=== PATIENT | female | born 1980 | race Caucasian/White ===

== ENCOUNTER 2018-01-15 19:56 | Emergency (ER) | payer OTHER, SELFPAY ==
[2018-01-15] MEDS ORDERED: predniSONE 20 MG TAB ONE (20:26)
== END 2018-01-15 20:29 | disposition home or self-care (01) ==
LOC: MADERS 19:56
DX: J06.9 Acute upper respiratory infection, unspecified (principal)
CPT/HCPCS: 99283; J7506

== ENCOUNTER 2018-05-08 08:55 | Outpatient (CLI) | payer OTHER ==
[2018-05-08 10:55] LABS: Red Blood Cell (RBC) Count 4.26 mill/uL (4.20-5.40); White Blood Cell (WBC) Count 5.9 thou/uL (4.8-10.8)
[2018-05-08 10:56] LABS: Hemoglobin 13.9 g/dL (12.0-16.0); MDiff Complete? YES; Mean Corpuscular HGB CONC 34.4 g/dL (32.0-36.0); Mean Corpuscular Hemoglobin 32.6 pg (27.0-31.0); Mean Corpuscular Volume 94.6 fL (78.0-98.0); Mean Platelet Volume 7.4 fL (7.4-10.4); Platelet Count 210 thou/uL (130-400)
[2018-05-08 10:57] LABS: Lymphocytes 27 % (21-51); Monocytes 3 % (0-10); Neutrophil 70 % (42-75); Platelet Morphology Comment Appears Adequate
[2018-05-08 10:59] LABS: Anisocytosis SLIGHT = 6-15 cells (100X) (0-5/hpf)
--- NOTE | 2018-05-08 11:20 | ULT ---
SOFT TISSUE ULTRASOUND OF THE RIGHT INGUINAL REGION FOR SIX MONTHS: COMPARISON: None. FINDINGS: There is a 2.2 x 0.3 cm lymph node within the palpable region of interest. The fatty hilum is mainta ined. The lymph node cortex measured 1.5 mm. No additional lymphadenopathy is evident. IMPRESSION: Small lymph node corresponds to the palpable region of interest within the right inguinal region. POS: [facility]
== END 2018-05-08 08:56 | disposition home or self-care (01) ==
LOC: MADLABBHPM 08:55
PROVIDERS: ATTEND Family Medicine
DX: R59.1 Generalized enlarged lymph nodes (principal)
CPT/HCPCS: 36415; 76999; 85007; 85027; 85060

== ENCOUNTER 2018-12-02 00:22 | Emergency (ER) | payer OTHER, SELFPAY ==
[2018-12-02 01:29] LABS: #Basophils 0.1 thou/uL (0.0-0.2); #Eosinphils 0.3 thou/uL (0.0-0.7); #Lymphocytes 2.6 thou/uL (1.20-3.40); #Monocytes 0.3 thou/uL (0.11-0.59); #Neutrophils 3.2 thou/uL (1.40-6.50); %Basophils 1.1 % (0.0-1.0); %Eosinophils 3.9 % (0.0-10.0); %Monocytes 5.1 % (0.0-10.0); Hemoglobin 13.2 g/dL (12.0-16.0); Mean Corpuscular HGB CONC 32.7 g/dL (32.0-36.0); Mean Corpuscular Hemoglobin 30.9 pg (27.0-31.0); Mean Corpuscular Volume 94.4 fL (78.0-98.0); Platelet Count 222 thou/uL (130-400); RBC Distribution Width 11.7 % (11.5-14.5); Red Blood Cell (RBC) Count 4.28 mill/uL (4.20-5.40); White Blood Cell (WBC) Count 6.5 thou/uL (4.8-10.8)
[2018-12-02 02:16] LABS: ALT (SGPT) 7 U/L (8-55); AST (SGOT) 12 U/L (5-34); Albumin 4.3 g/dL (3.5-5.0); Alkaline Phosphatase 39 U/L (40-110); Anion Gap 11 mmol/L (10-20); BUN (Urea Nitrogen) 11 mg/dL (7.0-18.7); Bilirubin, Total 0.3 mg/dL (0.2-1.2); Calc. Creatinine Clearance 0 mL/min (70-130); Calcium 9.3 mg/dL (7.8-10.44); Carbon Dioxide 25 mmol/L (22-29); Chloride 109 mmol/L (98-107); Estimated GFR-MDRD 83; Globulin 2.5 g/dL (2.4-3.5); Glucose 94 mg/dL (70-105); Potassium 3.5 mmol/L (3.5-5.1); Protein, Total 6.8 g/dL (6.0-8.3); Sodium 141 mmol/L (136-145)
--- NOTE | 2018-12-02 10:45 | RAD ---
PORTABLE AP CHEST XRAY: HISTORY: Chest pain. COMPARISON: None. 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 Cardiac silhouette and pulmo nary vasculature are within normal limits. Osseous structures are intact. IMPRESSION: No acute cardiopulmonary process. POS: OFF
== END 2018-12-02 02:18 | disposition home or self-care (01) ==
LOC: MADERS 00:22
DX: R07.89 Other chest pain (principal); R06.00 Dyspnea, unspecified
CPT/HCPCS: 71045; 80053; 83880; 84484; 85025; 85379; 93005